=== PATIENT | female | born 1985 | race Two or more races ===

== ENCOUNTER 2016-11-25 21:03 | Inpatient (IN) | payer OTHER, MEDICAID ==
[2016-11-25 21:31] LABS: APPEARANCE,URINE SLIGHTLY-CLOUDY; BILIRUBIN,URINE NEGATIVE (NEGATIVE); GLUCOSE, URINE NEGATIVE (NEGATIVE); KETONES,URINE NEGATIVE (NEGATIVE); LEUKOCYTE ESTERASE,URINE TRACE (NEGATIVE); NITRITE,URINE NEGATIVE (NEGATIVE); PROTEIN,URINE 30 mg/dL (NEGATIVE); URINE SPECIFIC GRAVITY 1.027; UROBILINOGEN,URINE NEGATIVE mg/dL (<2.0)
[2016-11-25] MEDS ORDERED: PENICILLIN G-K 5 MILLION UNIT VIAL ONE (21:32)
[2016-11-25] MEDS ORDERED: PENICILLIN G POTASSIUM 5,000,000 UNIT in DEXTROSE 5%-WATER 100 ML IV ONE (21:37)
[2016-11-25] MEDS: RINGERS SOLUTION,LACTATED 1,000 ML IV PRN (21:47)
[2016-11-25 21:57] LABS: URINE BARBITURATES SCREEN NEGATIVE; URINE METHADONE SCREEN NEGATIVE; URINE OPIATES LOW NEGATIVE; URINE PHENCYCLIDINE SCREEN NEGATIVE
[2016-11-25 22:19] LABS: ABSOLUTE EOSINOPHILS # (AUTO) 0.1 10^3/uL (0.0-0.6); ABSOLUTE LYMPHOCYTES (AUTO) 1.6 10^3/uL (0.5-4.7); ABSOLUTE MONOCYTES (AUTO) 0.7 10^3/uL (0.1-1.4); ABSOLUTE NEUT (AUTO) 8.6 10^3/uL (1.7-8.2); BASOPHILS % (AUTO) 0.1 % (0-2); EOSINOPHILS % (AUTO) 1.4 % (0-6); HEMATOCRIT 34.4 % (36.0-47.0); HEMOGLOBIN 11.9 g/dL (12.0-15.5); HGB HCT DIFFERENCE 1.3; LYMPHOCYTES % (AUTO) 14.3 % (13-45); MEAN CORPUSCULAR HEMOGLOBIN 30.2 pg (27.0-33.4); MEAN CORPUSCULAR HGB CONC 34.5 g/dL (32.0-36.0); MEAN CORPUSCULAR VOLUME 88 fl (80-97); MONOCYTES % (AUTO) 5.9 % (3-13); RED BLOOD COUNT 3.93 10^6/uL (3.72-5.28); RED CELL DISTRIBUTION WIDTH 14.2 % (11.5-14.0); SEGMENTED NEUTROPHILS % (AUTO) 78.3 % (42-78)
[2016-11-26] MEDS ORDERED: OXYTOCIN/NORMAL SALINE 20 UNIT/1,000 ML RTUINJ ONE ×2 (00:08→03:51)
[2016-11-26] MEDS ORDERED: PENICILLIN G-K 5 MILLION UNIT VIAL ONE (01:35)
[2016-11-26] MEDS ORDERED: PENICILLIN G POTASSIUM 2,500,000 UNIT in DEXTROSE 5%-WATER 50 ML IV SCH (01:38)
[2016-11-26] MEDS: RINGERS SOLUTION,LACTATED 1,000 ML IV PRN (02:46)
[2016-11-26] MEDS ORDERED: EPHEDRINE SULFATE INJ 50 MG/1 ML AMPULE ONE (03:17)
[2016-11-26] MEDS ORDERED: FENTANYL/BUPIVACAINE/NS/PF 0 MCG/0 ML RTUINJ EPI ONE (03:18)
[2016-11-26] MEDS ORDERED: BUPIVACAINE HCL 0.25 % INJ/PF (2.5 MG/1 ML) 30 ML VIAL ONE (03:18)
[2016-11-26] MEDS ORDERED: LIDOCAINE 1% INJ-PF (10 MG/ML) 30 ML SDV ONE ×2 (03:33→03:51)
[2016-11-26] MEDS ORDERED: MISOPROSTOL 0.2 MG TABLET ONE ×2 (03:33→03:51)
--- NOTE | 2016-11-26 05:20 | Delivery Summary ---
Del Sum A-C Datetime Report Generated by CPN: 11/26/2016 05:20 DELIVERY PERSONNEL DELIVERY PERSONNEL: [id number] Delivery Doctor:: Renate Lunsford MD Labor and Delivery Nurse:: Ana Light RNelectric power line examiner Nurse:: Ruby Mac RN Nursery Nurse:: Mirlande Murcia/PHOTO PRINTER: Ginger Rao, ST MATERNAL INFORMATION Delivery Anesthesia: None Medications After Delivery: Pitocin Drip 20 Units/1000ml NSS Estimated Blood Loss (ml): 100 Maternal Complications: None Provider Comments: Pt progressed to of female infant over intact perineum of female with apgars 9 and 9. Cord clamped and cut. Placenta spontaneous and intact. Mom and baby doing well. LABOR SUMMARY EDC: 11/18/2016 00:00 No. Babies in Womb: 1 Attempted: No Labor Anesthesia: None LABOR INFORMATION Onset of Labor: 11/25/2016 21:40 Complete Dilatation: 11/26/2016 03:50 Oxytocin: Augmentation Group B Beta Strep: positive Antibiotics # of Doses: 2 Antibiotics Time of Last Dose: 0138 Name of Antibiotic Given: Penicillin Steroids Given: None Other Reason Not Administered: N/A MEMBRANES Membranes Rupture Method: Spontaneous Rupture of Membranes: 11/25/2016 19:45 Length of Rupture (hr): 8.28 Amniotic Fluid Color: Clear Amniotic Fluid Amount: Small Amniotic Fluid Odor: Normal STAGES OF LABOR Stage 1 hr: 6 Stage 1 min: 10 Stage 2 hr: 0 Stage 2 min: 12 Stage 3 hr: 0 Stage 3 min: 3 Total Time in Labor hr: 6 Total Time in Labor min: 25 VAGINAL DELIVERY Episiotomy: None Laceration Extension: N/A Laceration Type: None Laceration Repair: Not Applicable Sponge Count Correct: N/A Sharps Count Correct: N/A CSECTION DELIVERY Primary Indication: N/A Secondary Indication: N/A CSection Incidence: N/A Labor: N/A Elective: N/A CSection Incision: N/A BABY A INFORMATION Infant Delivery Date/Time: 11/26/2016 04:02 Method of Delivery: Vaginal Born in Route : No : N/A Forceps: N/A Vacuum Extraction: N/A Shoulder Dystocia : No PRESENTATION/POSITION BABY A Presentation: Cephalic Cephalic Presentation: Vertex Vertex Position: Right Occipital Anterior Breech Presentation: N/A PLACENTA INFORMATION BABY A Placenta Delivery Time : 11/26/2016 04:05 Placenta Method of Delivery: Spontaneous Placenta Status: Delivered SCORES BABY A Heart Rate 1 min: >100 bpm Resp Effort 1 min: Good Cry Reflex Irritability 1 min: Cough or Sneeze or Pulls Away Muscle Tone 1 min: Active Motion Color 1 min: Body [place], Extremities Blue Resuscitation Effort 1 min: Tactile Stimulation SCORE 1 MIN: 9 Heart Rate 5 min: >100 bpm Resp Effort 5 min: Good Cry Reflex Irritability 5 min: Cough or Sneeze or Pulls Away Muscle Tone 5 min: Active Motion Color 5 min: Body [place], Extremities Blue Resuscitation Effort 5 min: Tactile Stimulation SCORE 5 MIN: 9 INFORMATION BABY A Gestational Age at Delivery: 41.1 Gestational Status: Late Term- 41- 41.6 Weeks Outcome : Liveborn Infant Condition : Stable Infant Sex: Female IDENTIFICATION BABY A Verification Date/Time: 11/26/2016 04:15 ID Band Number: [id number] Mother's Name Verified: Yes Infant RN Verifying : OAyleen Mac RN/MAyleen Light RN WEIGHT/LENGTH BABY A Birthweight (gm): 3258 Weight (lb): 7 Weight (oz): 3 Infant Length (in): 19.50 Length (cm): 49.53 CORD INFORMATION BABY A No. 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
[2016-11-26] MEDS ORDERED: ACETAMINOPHEN WITH CODEINE #3 TABLET PO PRN ×2 (05:39)
[2016-11-26] MEDS ORDERED: OXYTOCIN/NORMAL SALINE 1,000 ML IV PRN (05:39)
[2016-11-26] MEDS ORDERED: DIBUCAINE 1% OINTMENT 28 GM TP PRN (05:39)
[2016-11-26] MEDS ORDERED: MEASLES,MUMPS&RUBELLA VACC/PF 0.5 ML VIAL SUBCUT PRN (05:39)
[2016-11-26] MEDS ORDERED: BENZOCAINE/MENTHOL AEROSOL SPRAY 56 ML TOP PRN (05:39)
[2016-11-26] MEDS ORDERED: ZOLPIDEM TARTRATE 5 MG TABLET PO PRN (05:39)
[2016-11-26] MEDS ORDERED: DIPH/PERTUSS(ACELL)/TETANUS VAC/PF 0.5 ML SYR (>=10YO) IM PRN (05:39)
[2016-11-26] MEDS ORDERED: IBUPROFEN 800 MG TABLET ONE (05:59)
[2016-11-26] MEDS: IBUPROFEN 800 MG TABLET PO SCH ×3 (06:00→21:14)
--- NOTE | 2016-11-26 08:46 | Admission Physical ---
Datetime Report Generated by CPN: 11/26/2016 08:46 CURRENT ADMISSION Hx Assessment: The History has been Reviewed and is Current Chief Complaint: Suspected Ruptured Membranes Admit Plan: Initiate Labor Induction Protocol ALLERGIES Medication Allergies: No Medication Allergies: No Known Allergies (11/25/2016) Medication Allergies: No Known Allergies (06/06/2013) Latex: No Latex Allergies OBSTETRICAL HISTORY EDC: 11/18/2016 00:00 : 2 Para: 1 Term: 1 : 0 SAB: 0 IAB: 0 Ectopic: 0 Livin Gestational Diabetes: No Rh Sensitization: No Incompetent Cervix: No HUA: No Infertility: No ART Treatment: No Uterine Anomaly: No IUGR: No Hx Previous C/S: No Macrosomia: No Hx Loss/Stillborn: No PIH: No Hx : No Placenta Previa/Abruption: No Depression/PP Depression: No PTL/PROM: No Post Hemorrhage: No Current Procedures: Ultrasound Obstetrical History Comments: 2009 7 lbs 5 oz female vaginal G2- current SEE RECORDS Alcohol: No Marijuana : No Cocaine: No Other Illicit Drugs: No Cigarettes: Former Smoker. 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 Surgery: No Heart Disease: No Hosp/Surgery: No Autoimmune Disorder: No Anesthetic Complications: No Kidney Disease: No Abnormal Pap Smear: No Neuro/Epilepsy: No Psychiatric Disorders: No Other Medical Diseases: No Hepatitis/Liver Disease: No Significant Family History: No Varicosities/Phlebitis: No Trauma/Violence : No Thyroid Dysfunction: No Medical History Comments: asthma- on symbicort and proair HFA L ovarian cyst 7 cm INFECTIOUS HISTORY Gonorrhea: No Genital Herpes: No Chlamydia: No Tuberculosis: No Syphilis: No Hepatitis: No HIV/AIDS Exposure: No Rash or Viral Illness: No HPV: No PHYSICAL EXAM General: Normal HEENT: Normal Neurologic: Normal Thyroid: Normal Heart: Normal Lungs: Normal Breast: Normal Back: Normal Abdomen: Normal Genitourinary Exam: Normal Extremities: Normal DTRs: Normal Pelvic Type: Adequate Physical Exam Comments: gbs + clear gross rom VAGINAL EXAM Dilatation: 3 Effacement: 70 Station: -2 FETUS A EGA: 41.0 Monitoring: External US FHR Category: Category I Admit Comment: admit for srom at 41 wks-gbs prophylaxis, pit induction PLANS FOR LABOR AND DELIVERY Labor and Delivery: None Pain Management: Epidural Feeding Preference: Breast Benefit of Breast Feed Discussed: Yes Circumcision: N/A INFORMED CONSENT Signature: with User ID: [email or web address]
[2016-11-26] MEDS: PRENATAL VITAMIN W-O CA NO5/FE FUMARATE/FA CAPSULE PO SCH (09:27)
[2016-11-26] MEDS: FERROUS SULFATE 325 MG TABLET PO SCH ×2 (09:27→17:59)
[2016-11-26] MEDS: SENNOSIDES/DOCUSATE 8.6-50 MG 1 EACH TABLET PO SCH (09:28)
[2016-11-26] MEDS: DOCUSATE SODIUM 100 MG CAPSULE PO SCH ×2 (09:28→18:00)
[2016-11-27] MEDS: IBUPROFEN 800 MG TABLET PO SCH ×3 (06:09→21:05)
[2016-11-27 07:20] LABS: HEMATOCRIT 31.8 % (36.0-47.0); HEMOGLOBIN 11.1 g/dL (12.0-15.5); HGB HCT DIFFERENCE 1.5; MEAN CORPUSCULAR HEMOGLOBIN 30.3 pg (27.0-33.4); MEAN CORPUSCULAR HGB CONC 34.9 g/dL (32.0-36.0); MEAN CORPUSCULAR VOLUME 87 fl (80-97); RED BLOOD COUNT 3.65 10^6/uL (3.72-5.28); RED CELL DISTRIBUTION WIDTH 14.4 % (11.5-14.0); WHITE BLOOD COUNT 9.4 10^3/uL (4.0-10.5)
[2016-11-27] MEDS: SENNOSIDES/DOCUSATE 8.6-50 MG 1 EACH TABLET PO SCH (10:09)
[2016-11-27] MEDS: FERROUS SULFATE 325 MG TABLET PO SCH ×2 (10:09→17:44)
[2016-11-27] MEDS: DOCUSATE SODIUM 100 MG CAPSULE PO SCH ×2 (10:09→17:44)
[2016-11-27] MEDS: PRENATAL VITAMIN W-O CA NO5/FE FUMARATE/FA CAPSULE PO SCH (10:10)
--- NOTE | 2016-11-27 10:17 | PDOC PROGRESS REPORT ---
Subjective-OB Subjective: Post Delivery Day: 1 31 year old. Denies any needs at this time, states lochia is stable, pain well controlled, voiding without difficulty. Physical Exam (OB) Vital Signs: Temp Pulse Resp BP Pulse Ox 97.8 F 76 16 112/70 100 11/27/16 07:55 11/27/16 07:55 11/27/16 07:55 11/27/16 07:55 11/27/16 07:55 Intake & Output 11/26/16 11/27/16 11/28/16 06:59 06:59 06:59 Intake Total 500 Balance 500 Weight 78.6 kg - PIH/Pre-Eclampsia DTR's: 2 + Clonus: Negative Headache: Absent Epigastric Pain: No Visual Changes: No - Lochia Lochia Amount: Small 10-25 ml Lochia Color: Rubra/Red - Abdomen Description: Soft Hernia Present: No Fundal Description: Firm, Midline Fundal Height: u/u - u/2 Objective-Diagnostic Laboratory: 11/27/16 07:05 11/27/16 07:05 WBC 9.4 RBC 3.65 L Hgb 11.1 L Hct 31.8 L MCV 87 MCH 30.3 MCHC 34.9 RDW 14.4 H Plt Count 117 L Assessment and Plan(PN) - Assessment and Plan (1) Delivery normal Is this a current diagnosis for this admission?: YesPlan: routine pp care - Time Spent with Patient Time with patient: Less than 15 minutes Critical Time spent with patient: Less than 15 minutes Medications reviewed and adjusted accordingly: Yes - Disposition Anticipated Discharge: Home Within: within 24 hours
[2016-11-28] MEDS: IBUPROFEN 800 MG TABLET PO SCH ×2 (05:08→13:35)
[2016-11-28] MEDS: FERROUS SULFATE 325 MG TABLET PO SCH (10:09)
[2016-11-28] MEDS: SENNOSIDES/DOCUSATE 8.6-50 MG 1 EACH TABLET PO SCH (10:09)
[2016-11-28] MEDS: PRENATAL VITAMIN W-O CA NO5/FE FUMARATE/FA CAPSULE PO SCH (10:09)
[2016-11-28] MEDS: DOCUSATE SODIUM 100 MG CAPSULE PO SCH (10:10)
[2016-11-28 11:15] VITALS: BP 115/75
[2016-11-28] MEDS ORDERED: MEDROXYPROGESTERONE ACET INJ 150 MG/1 ML VIAL IM ONE (11:49)
--- NOTE | 2016-11-28 12:17 | PDOC DISCHARGE SUMMARY ---
Final Diagnosis Discharge Date: 11/28/16 - Final Diagnosis (1) Delivery normal Is this a current diagnosis for this admission?: Yes Discharge Data - Discharge Medication Home Medications: Vit #76/Iron,Carb/FA [Pnv 29-1 Tablet] 1 tab PO DAILY 11/25/16 Ibuprofen [Motrin 800 mg Tablet] 800 mg PO Q8HP PRN #30 tablet 11/28/16 Reason(s) for Admission: Onset of Labor, PROM Procedures: NST, Ultrasound Intrapartum Procedure(s): Spontaneous Vaginal Delivery - Diagnosis Test Laboratory: Temp Pulse Resp BP Pulse Ox 98.1 F 81 18 116/68 99 11/27/16 19:28 11/27/16 19:28 11/27/16 19:28 11/27/16 19:28 11/27/16 19:28 11/25/16 11/25/16 11/27/16 21:10 22:05 07:05 RBC 3.93 3.65 L Hgb 11.9 L 11.1 L Hct 34.4 L 31.8 L Urine Opiates Screen NEGATIVE - Discharge information/Instructions Discharge Activity: Activity As Tolerated, Balance Activity w/Rest, No Lifting Over 10 Pounds, No Lifting/Push/Pulling, Pelvic Rest, Slowly Increase Activity, No tub bath Discharge Diet: As Tolerated, Regular Disposition: HOME, SELF-CARE Follow up with: [facility] in: 4, Weeks
== END 2016-11-28 15:00 | disposition home or self-care (01) | DRG 775 ==
LOC: LC 21:03 → LR 21:21 → 2S 11-26 08:44
PROVIDERS: ADMIT Specialist; ATTEND Specialist
PROC: 4A1HXCZ Monitoring of Products of Conception, Cardiac Rate, External Approach (ICD-10-PCS; 2016-11-25)
PROC: 10E0XZZ Delivery of Products of Conception, External Approach (ICD-10-PCS; principal; 2016-11-26)
DX: O42.02 Full-term premature rupture of membranes, onset of labor within 24 hours of rupture (principal); O99.334 Smoking (tobacco) complicating childbirth; F17.210 Nicotine dependence, cigarettes, uncomplicated; O99.824 Streptococcus B carrier state complicating childbirth; O99.513 Diseases of the respiratory system complicating pregnancy, third trimester; J45.909 Unspecified asthma, uncomplicated; O34.83 Maternal care for other abnormalities of pelvic organs, third trimester; N83.202 Unspecified ovarian cyst, left side; O69.81X0 Labor and delivery complicated by cord around neck, without compression, not applicable or unspecified; Z3A.41 41 weeks gestation of pregnancy; Z37.0 Single live birth
CPT/HCPCS: 36415; 80307; 81005; 85025; 85027; 86592; 86850; 86900; 86901; J1050; J2540; J2590; J3490

== ENCOUNTER 2019-12-10 13:19 | Emergency (ER) | payer BC, MEDICAID ==
[2019-12-10] MEDS ORDERED: ADENOSINE INJ/PF 6 MG/2 ML SDV IV ONE (13:43)
[2019-12-10 14:14] LABS: ABSOLUTE EOSINOPHILS # (AUTO) 0.4 10^3/uL (0.0-0.6); ABSOLUTE MONOCYTES (AUTO) 0.7 10^3/uL (0.1-1.4); ABSOLUTE NEUT (AUTO) 5.6 10^3/uL (1.7-8.2); BASOPHILS % (AUTO) 0.1 % (0-2); HEMATOCRIT 41.5 % (36.0-47.0); HEMOGLOBIN 14.4 g/dL (12.0-15.5); LYMPHOCYTES % (AUTO) 23.3 % (13-45); MEAN CORPUSCULAR HEMOGLOBIN 29.2 pg (27.0-33.4); MEAN CORPUSCULAR HGB CONC 34.8 g/dL (32.0-36.0); MEAN CORPUSCULAR VOLUME 84 fl (80-97); MONOCYTES % (AUTO) 7.7 % (3-13); PLATELET COUNT 248 10^3/uL (150-450); RED BLOOD COUNT 4.95 10^6/uL (3.72-5.28); SEGMENTED NEUTROPHILS % (AUTO) 63.9 % (42-78); TOTAL CELLS COUNTED % (AUTO) 100 %; WHITE BLOOD COUNT 8.8 10^3/uL (4.0-10.5)
[2019-12-10 14:30] LABS: ALBUMIN 4.8 g/dL (3.5-5.0); ALKALINE PHOSPHATASE 73 U/L (38-126); ANION GAP 10 (5-19); ASPARTATE AMINO TRANSFERASE 29 U/L (14-36); BILIRUBIN,TOTAL 0.5 mg/dL (0.2-1.3); BLOOD UREA NITROGEN 12 mg/dL (7-20); CALCIUM 9.8 mg/dL (8.4-10.2); CARBON DIOXIDE 18 mmol/L (22-30); CHLORIDE 111 mmol/L (98-107); GLUCOSE 111 mg/dL (75-110); POTASSIUM 3.9 mmol/L (3.6-5.0); TOTAL PROTEIN 8.6 g/dL (6.3-8.2)
--- NOTE | 2019-12-10 15:15 | EKG REPORT ---
SEVERITY:- ABNORMAL ECG - SINUS TACHYCARDIA LEFT ATRIAL ABNORMALITY : Confirmed by: Nathaniel Avila MD 10-Dec-2019 15:14:35
--- NOTE | 2019-12-10 15:17 | EKG REPORT ---
SEVERITY:- OTHERWISE NORMAL ECG - SUPRAVENTRICULAR TACHYCARDIA : Confirmed by: Nathaniel Avila MD 10-Dec-2019 15:16:39
--- NOTE | 2019-12-10 15:35 | ER Document Report ---
ED Cardiac - General Chief Complaint: Arrhythmia Stated Complaint: FAST HEART RATE,FINGERS TINGLING Time Seen by Provider: 12/10/19 13:50 Mode of Arrival: Ambulatory Information source: Patient TRAVEL OUTSIDE OF THE [place] IN LAST 30 DAYS: No - HPI Notes: Patient presents with palpitations and some anxiety as well as shortness of breath. She states it started today suddenly. She states recently she has had to use her inhaler more for her asthma. She states she is never had any trouble with any type of abnormal cardiac rhythms in the past. Patient's palpitation or shortness of breath are worse with exertion and better with rest. It has been going on constantly for the last several hours. There is no significant radiation of the symptoms. They have been moderate in intensity. She denies any vomiting or diarrhea. No history of being - Related Data Allergies/Adverse Reactions: No Known Allergies Allergy (Unverified 11/25/16 21:05) Home Medications: effexor 10 mg Q morning Past Medical History - General Information source: Patient - Social History Smoking Status: Current Every Day Smoker Chew tobacco use (# tins/day): No Frequency of alcohol use: None Drug Abuse: None Family History: Reviewed & Not Pertinent Patient has homicidal ideation: No Psychiatric Medical History: Reports: Hx Anxiety, Hx Depression - anxiety - Immunizations Hx Diphtheria, Pertussis, Tetanus Vaccination: Yes Review of Systems - Review of Systems Constitutional: denies: Chills, Fever Cardiovascular: Palpitations. denies: Chest pain Respiratory: Short of breath. denies: Cough -: Yes All other systems reviewed and negative Physical Exam - Vital signs Vitals: Temp Pulse Resp BP Pulse Ox 99.1 F 155 H 20 149/108 H 99 12/10/19 13:32 12/10/19 13:32 12/10/19 13:32 12/10/19 13:32 12/10/19 13:32 Interpretation: Hypertensive, Tachycardic - General General appearance: Appears well, Alert - HEENT Head: Normocephalic, Atraumatic Eyes: Normal Pupils: PERRL - Respiratory Respiratory status: No respiratory distress Chest status: Nontender Breath sounds: Normal Chest palpation: Normal - Cardiovascular Rhythm: Tachycardia Heart sounds: Normal auscultation Murmur: No - Abdominal Inspection: Normal Distension: No distension Bowel sounds: Normal Tenderness: Nontender Organomegaly: No organomegaly - Back Back: Normal, Nontender - Extremities General upper extremity: Normal inspection, Nontender, Normal color, Normal ROM, Normal temperature General lower extremity: Normal inspection, Nontender, Normal color, Normal ROM, Normal temperature, Normal weight bearing. No: Shandra's sign - Neurological Neuro grossly intact: Yes Cognition: Normal Orientation: AAOx4 [place] Coma Scale Eye Opening: Spontaneous [place] Coma Scale Verbal: Oriented [place] Coma Scale Motor: Obeys Commands [place] Coma Scale Total: 15 Speech: Normal Motor strength normal: LUE, RUE, LLE, RLE Sensory: Normal - Psychological Associated symptoms: Normal affect, Normal mood - Skin Skin Temperature: Warm Skin Moisture: Dry Skin Color: Normal Course - Re-evaluation Re-evalutation: 12/10/19 15:32 Patient presented in SVT. She converted after 1 dose of adenosine. She has no previous history of this. I will discharge the patient on a beta-jessy and have her follow-up with Dr. Taylor. No obvious cause for the SVT can be found. No electrolyte abnormalities. D-dimer is negative no evidence of SVT. - Vital Signs Vital signs: Temp Pulse Resp BP Pulse Ox 99.1 F 155 H 19 135/91 H 100 12/10/19 13:32 12/10/19 13:32 12/10/19 14:21 12/10/19 14:21 12/10/19 14:21 - Laboratory Result Diagrams: 12/10/19 13:45 12/10/19 13:45 Laboratory results interpreted by me: 12/10/19 13:45 Chloride 111 H Carbon Dioxide 18 L Glucose 111 H Total Protein 8.6 H - Diagnostic Test Radiology reviewed: Image reviewed, Reports reviewed - EKG Interpretation by Mt Rate: Tachycardia - 153 Rhythm: SVT [place]/QRS: No: Right axis deviation, Left axis deviation Additional EKG results interpreted by me: 12/10/19 15:31 A repeat EKG was done which shows patient to have a normal sinus rhythm. No right or left axis deviation. There is changes noticed from the previous EKG. Previous EKG showed SVT this 1 shows normal sinus rhythm. She is in a tachycardic rhythm. Procedures - Additional Procedures Cardioversion/Defib Time performed: 14:00 Additional Procedures: Cardioversion/defib - Patient cardioverted with 6 mg of adenosine IV. Critical Care Note - Critical Care Note Total time excluding time spent on procedures (mins): 40 Comments: Approximate 40 minutes of critical care time were spent managing this patient with SVT. This included multiple reassessments. Included reviewing laboratory values. It included reviewing old records. Discharge - Discharge Clinical Impression: SVT (supraventricular tachycardia) Condition: Stable Disposition: HOME, SELF-CARE Instructions: Palpitations (Irregular or Rapid Heartrate) ([facility]) Additional Instructions: Please call Dr. Taylor as soon as possible to arrange follow-up Prescriptions: Metoprolol Tartrate [Lopressor 25 mg Tablet] 25 mg PO DAILY #30 tab Forms: Return to Work Referrals: BRITTNEY TAYLOR MD [ACTIVE STAFF] - Follow up in 3-5 days
[2019-12-10 16:14] VITALS: BP 157/96
== END 2019-12-10 16:14 | disposition home or self-care (01) ==
LOC: ER 13:19
DX: I47.1 Supraventricular tachycardia (principal); R06.02 Shortness of breath; F41.9 Anxiety disorder, unspecified; R00.2 Palpitations; F17.200 Nicotine dependence, unspecified, uncomplicated; Z79.899 Other long term (current) drug therapy
CPT/HCPCS: 93005; 99291; 36415; 84703; 85025; 80053; 84484; 85379; 93010; J0153

== ENCOUNTER → 2019-12-23 | Outpatient (CLI) | payer BC ==
--- NOTE | 2019-12-23 17:01 | XCELERA REPORT ---
[address] [address] Transthoracic Echocardiogram Report Name: HOLLIE SCOTT Age: 34 yrs Gender: Female : 1985 Patient Status: Outpatient Patient Location: RAD Study Date: 12/23/2019 11:15 AM History: PSVT Chest pain Height: 68 in Weight: 150 lb BSA: 1.8 m2 Procedure: A complete two-dimensional transthoracic echocardiogram was performed (2D, M-mode, spectral and color flow Doppler). The study was technically adequate with some images being suboptimal in quality. Reason For Study: [email or web address] Previous Evaluation: No previous studies were available. History: PSVT. Chest pain. Ordering Physician: BRITTNEY TAYLOR Performed By: Des Shukla Interpretation Summary Left ventricular systolic function is normal. The Ejection Fraction estimate is 55-60% The right ventricle is normal in size and function. There is a trace amount of mitral regurgitation There is no aortic valve stenosis There is a trace amount of tricuspid regurgitation Doppler findings do not suggest pulmonary hypertension. There is no pericardial effusion. MMode/2D Measurements & Calculations RVDd: 2.4 cm LVIDd: 4.5 cm FS: 36.7 % Ao root diam: 2.7 cm IVSd: 0.76 cm LVIDs: 2.9 cm EDV(Teich): 93.7 ml Ao root area: 5.6 cm2 LVPWd: 0.77 cm ESV(Teich): 31.2 ml LA dimension: 2.7 cm EF(Teich): 66.7 % Doppler Measurements & Calculations MV E max cee: MV P1/2t max cee: Ao V2 max: LV V1 max P.6 cm/sec 112.5 cm/sec 82.1 cm/sec 1.6 mmHg MV A max cee: MV P1/2t: 40.1 msec Ao max PG: LV V1 max: 32.0 cm/sec MVA(P1/2t): 5.5 cm2 2.7 mmHg 63.1 cm/sec MV E/A: 3.2 MV dec slope: 822.4 cm/sec2 MV dec time: 0.18 sec PA V2 max: PI end-d cee: TR max cee: MV P1/2t-pr_phl: 71.1 cm/sec 109.7 cm/sec 216.3 cm/sec 40.1 msec PA max P.0 mmHg TR max P.7 mmHg Left Ventricle The left ventricle is normal in size. There is normal left ventricular wall thickness. Left ventricular systolic function is normal. The Ejection Fraction estimate is 55-60%. Doppler measurements suggest normal left ventricular diastolic function. No regional wall motion abnormalities noted. Right Ventricle The right ventricle is normal in size and function. Atria The right atrium is normal. The left atrial size is normal. The interatrial septum is intact with no evidence for an atrial septal defect. There is no Doppler evidence for an interatrial shunt. Mitral Valve The mitral valve is grossly normal. There is no mitral valve stenosis. There is a trace amount of mitral regurgitation. Aortic Valve The aortic valve is trileaflet. The aortic valve is normal in structure and function. The aortic valve opens well. There is no aortic valve stenosis. No aortic regurgitation is present. Tricuspid Valve The tricuspid valve is normal in structure and function. There is a trace amount of tricuspid regurgitation. Doppler findings do not suggest pulmonary hypertension. Pulmonic Valve The pulmonic valve is normal in structure and function. There is no pulmonic valvular stenosis. There is a trace amount of pulmonic regurgitation. Great Vessels The aortic root is normal size. The inferior vena cava appeared normal and decreased > 50% with respiration (RAP 5-10 mmHg). Effusions There is no pericardial effusion. : BRITTNEY TAYLOR Anil
== END ==
LOC: RAD 10:38
PROVIDERS: ATTEND Internal Medicine
DX: I47.1 Supraventricular tachycardia (principal); R07.9 Chest pain, unspecified; R06.00 Dyspnea, unspecified; R42 Dizziness and giddiness
CPT/HCPCS: 93306